=== PATIENT | female | born 1975 | race Caucasian/White ===

== ENCOUNTER 2016-04-20 05:44 | Day surgery (SDC) | payer OTHER ==
[~2016-04-20] VITALS: Ht 149.9 cm; Wt 68.1 kg
[~2016-04-20 05:44] MED LIST: KEPPRA1000 MG PO; KEPPRA500 MG PO; KEPPRA750 MG PO; MINIPRESS5 MG PO; NEURONTIN100 MG PO; PREDNISONE10 M1 PO; TEGRETOL-XR,CA200 MG PO; TOPAMAX25 MG PO; TOPAMAX50 MG PO; TOPIRAMATE200 MG PO; TRILEPTAL300 MG PO
[2016-04-20 06:33] VITALS: BP 97/60
[2016-04-20 10:36] VITALS: BP 105/64
[2016-04-20 11:27] VITALS: BP 94/67
[2016-04-20 12:28] VITALS: BP 97/65
== END 2016-04-20 12:35 | disposition home or self-care (01) ==
LOC: SDC
DX: G40.509 Epileptic seizures related to external causes, not intractable, without status epilepticus (principal); G50.0 Trigeminal neuralgia; Z79.899 Other long term (current) drug therapy
CPT/HCPCS: 71010; 88305; J0131; J0330; J0690; J1100; J1170; J1885; J2175; J2250; J2405; J2710; J3010